=== PATIENT | female | born 1950 | race Caucasian/White ===

== ENCOUNTER 2017-02-06 16:41 | Emergency (ER) | payer MEDICARE, OTHER ==
[~2017-02-06 16:41] MED LIST: ALBUTEROL S3 ML/VIAL NEB; CARDIZEM CD240 MG PO; COMBIVENT RESPIM4 GM IH; DAILY VITE1 EACH PO; GLUCOPHAGE500 MG PO; KLONOPIN1 MG PO; LEVAQUIN750 MG PO; LEVEMIR FL100 UNIT/1 SQ; LEVEMIR100 UNIT/1 SQ; LISINOPRIL20 MG PO; NEURONTIN400 MG PO; NEURONTIN800 MG PO; NOVOLOG1 UNIT/0.0 SQ; OMEPRAZOLE40 MG PO; PERCOCET 10-321 EACH PO; PREDNISONE10 MG PO; SEROQUEL25 MG PO; SINGULAIR10 MG PO; SYMBICORT 16010.2 GM IH; TESSALON PERLE100 MG PO; ZESTRIL20 MG PO; ZITHROMAX500 MG PO; ZOFRAN8 MG PO; ZYRTEC10 MG PO
== END 2017-02-06 19:15 | disposition home or self-care (01) ==
LOC: ER 16:41
DX: M86.141 Other acute osteomyelitis, right hand (principal); E11.9 Type 2 diabetes mellitus without complications; I10 Essential (primary) hypertension; J44.9 Chronic obstructive pulmonary disease, unspecified; F17.210 Nicotine dependence, cigarettes, uncomplicated
CPT/HCPCS: 36415; 96365; 96375; J3370

== ENCOUNTER 2017-02-07 17:21 | Observation (INO) | payer MEDICARE, OTHER | END 2017-02-08 11:30 | disposition home or self-care (01) | LOC: SDC 17:21 → MED 22:47 | PROVIDERS: ADMIT Internal Medicine | DX: M86.141 Other acute osteomyelitis, right hand (principal); J44.9 Chronic obstructive pulmonary disease, unspecified; E11.9 Type 2 diabetes mellitus without complications; I10 Essential (primary) hypertension; Z88.2 Allergy status to sulfonamides; Z88.8 Allergy status to other drugs, medicaments and biological substances; Z79.899 Other long term (current) drug therapy | CPT/HCPCS: 96374; G0378; J1885; J2704; J2765; J3370; J7040 ==

== ENCOUNTER 2017-04-05 21:52 | Emergency (ER) | payer MEDICARE, OTHER | END 2017-04-06 00:41 | disposition critical access hospital (66) | LOC: ER 21:52 | DX: J18.1 Lobar pneumonia, unspecified organism (principal); J44.1 Chronic obstructive pulmonary disease with (acute) exacerbation; R00.2 Palpitations; E11.9 Type 2 diabetes mellitus without complications; I10 Essential (primary) hypertension; F17.210 Nicotine dependence, cigarettes, uncomplicated; Z79.84 Long term (current) use of oral hypoglycemic drugs; Z79.899 Other long term (current) drug therapy; Z88.6 Allergy status to analgesic agent; Z99.81 Dependence on supplemental oxygen | CPT/HCPCS: 36415; 96361; 96365; 96375; J0696 ==

== ENCOUNTER 2017-04-05 21:52 | Inpatient (IN) | payer MEDICARE, OTHER ==
[~2017-04-05] VITALS: Ht 165.1 cm; Wt 45.0 kg
--- NOTE | 2017-04-07 05:05 | NUR ---
PT REFUSED TO WEAR BIPAP AT NIGHT TO REST. RESPIRATORY SAID SHE REFUSED.
== END 2017-04-09 14:15 | disposition home or self-care (01) | DRG 871 ==
LOC: ER 21:52 → MED 23:21 → ER 04-06 00:42 → MED 04-06 00:42
PROVIDERS: ADMIT Internal Medicine
DX: A41.9 Sepsis, unspecified organism (principal); J96.21 Acute and chronic respiratory failure with hypoxia; J18.9 Pneumonia, unspecified organism; J44.0 Chronic obstructive pulmonary disease with (acute) lower respiratory infection; E11.65 Type 2 diabetes mellitus with hyperglycemia; Z79.4 Long term (current) use of insulin; F41.9 Anxiety disorder, unspecified; Y95 Nosocomial condition; Z99.81 Dependence on supplemental oxygen; I10 Essential (primary) hypertension; M79.7 Fibromyalgia; G89.4 Chronic pain syndrome; Z89.021 Acquired absence of right finger(s); Z79.84 Long term (current) use of oral hypoglycemic drugs; Z79.899 Other long term (current) drug therapy; Z88.6 Allergy status to analgesic agent; Z88.2 Allergy status to sulfonamides; F17.210 Nicotine dependence, cigarettes, uncomplicated; Z82.49 Family history of ischemic heart disease and other diseases of the circulatory system; Z83.3 Family history of diabetes mellitus; Z84.1 Family history of disorders of kidney and ureter; M54.5 Low back pain
CPT/HCPCS: 36415; J0456; J0696; J1650; J3370; J7050